=== PATIENT | male | born 1970 | race Two or more races ===

== ENCOUNTER 2020-10-17 13:36 | Outpatient (REF) | payer OTHER, SELFPAY | END 2020-10-17 13:37 | disposition home or self-care (01) | LOC: HO.LAB 13:36 | PROVIDERS: Visit Provider Internal Medicine | DX: Z20.828 Contact with and (suspected) exposure to other viral communicable diseases (principal) | CPT/HCPCS: C9803; U0003 ==

== ENCOUNTER → 2020-10-23 15:58 | Outpatient (BNVA) | payer OTHER, SELFPAY | PROVIDERS: PCP Internal Medicine; Visit Provider Nurse Practitioner | DX: Z76.89 Persons encountering health services in other specified circumstances (principal) ==

== ENCOUNTER 2020-12-24 08:22 | Day surgery (SDC) | payer OTHER, SELFPAY ==
--- NOTE | 2020-12-24 09:20 | P.CONAN_ITS ---
[facility] Active Problems Active Problems: All Active Problems (Updated 12/19/20 @ 11:33 by Lita ospina) COVID-19 (Acute) Hypertension (Acute) Past Medical History Medical History (Updated 12/19/20 @ 11:33 by Lita Henry) GERD (gastroesophageal reflux disease) Family History Family History (Updated 10/23/20 @ 16:02 by JOVAN Marte) Father Hypercholesteremia Diabetes Mother Thyroid condition Maternal Uncle Stomach ulcer Surgical History Surgical History (Updated 10/23/20 @ 16:00 by JOVAN Marte) No history of previous surgery Social History Social History (Updated 12/19/20 @ 11:33 by Lita Henry) Alcohol intake: current Alcohol intake frequency: holidays/special occasions only Smoking Status: Never smoker Use of substances other than those prescribed or required for medical reasons: Yes Substance Use Type: Marijuana Substance Use Frequency: Daily Advance Directives Information Provided: No Meds Allergies Allergy/AdvReac Type Severity Reaction Status Date / Time No Known Allergies Allergy Verified 10/23/20 15:59 Active Medications: Current Medications Generic Name Dose Route Start Last Admin Trade Name Lucianoq PRN Reason Stop Dose Admin Lactated Ringer's 500 mls @ 50 mls/hr 12/24/20 09:30 Lr IV 12/24/20 19:29 .Q10H [facility] Home Medications Medication Instructions Recorded Confirmed Last Taken Type omeprazole 40 mg capsule,delayed 40 mg PO DAILY 11/17/20 12/19/20 Unknown History release Exam Exam Date and Time: December 24, 2020 0920 Airway Mallampati Class: I TM Dist: >3cm Neck ROM: Full Heart: RRR Lungs: CTA BL Assessment and Plan Assessment Anesthesia Assessment: Anesthesia Plan Discussed and Chart Reviewed Final Anesthetic Review NPO: Yes ASA Class: II Final Preanesthetic Review: No Changes in Pt Med Stat and Consent Obtained/Reviewed Patient Risk: Intermediate Procedure Risk: Intermediate Anesthetic Plan Anesthetic Plan: MAC: Disposition: Standard PACU
[2020-12-24 09:29] VITALS: BP 151/93; PULSE 64; RESP 18; TEMP 36.8; O2SAT 99; BMI 25.8
[2020-12-24] MEDS: Lactated Ringers 500 ML 50 ML IV (09:39)
--- NOTE | 2020-12-24 10:18 | W.PM.OPN ---
Operative Note Operative Note Date of Service: 12/24/20 Narrative: Pre-op diagnosis: Colon cancer screening Post-op diagnosis: other (diverticulosis, hemorrhoids) Procedure: COLONOSCOPY TILL CECUM Consent: Indications for the procedure and potential complications of bleeding, perforation, reaction to medications and missed diagnosis were discussed with the patient and informed consent was obtained. Instrument: Olympus PCF H 190 L variable stiffness pediatric colonoscope Monitoring: Vital signs and clinical assessment, intermittent blood pressure monitoring, continuous EKG monitoring, Pulse oximetry and Carbon Dioxide monitoring were done throughout the procedure. Colon withdrawl time was 25 minutes. Procedure: The patient was placed in the left lateral decubitis position and pre-procedure medications were administered. After a digital rectal examination of the ano-rectum, the video colonoscope was inserted into the rectum and advanced through the colon to the cecum. The colonoscope was slowly withdrawn in a retrograde panoramic fashion and the colon mucosa was carefully examined including a retroflexed view of the rectum. Findings and interventions are described below. Procedure Difficulty: Without difficulty Findings: Terminal Ileum: Not evaluated Cecum: Normal Ascending Colon: Normal Transverse Colon: Normal Descending Colon: Moderate diverticulosis Sigmoid Colon: Severe diverticulosis Rectum: Normal Ano-rectum: Small internal hemorrhoids Colon preparation: Good after copious irrigation Impression and Post Procedure Diagnosis: Colonoscopy Findings: No polyps were detected. Moderate to severe diverticulosis seen in the left colon Small hemorrhoids on retroflexed exam. Plan: Await pathology results Patient has an appointment on 01/21/21 in the [facility] with Kimmy Gonzalez NP . Repeat Colonoscopy in 10 years. Above findings were reviewed with the patient and diverticulosis handout was given in the discharge area Surgeon: Rachel Soliz MD Anesthesia: MAC (Dr Villasenor) Estimated blood loss (mL): 0 Pathology: none sent Condition: stable Disposition: PACU
--- NOTE | 2020-12-24 10:18 | MHC.SHP ---
Pre-Procedural Eval Section A The patient is an INPATIENT: No The History & Physical has been completed within 30 days and I have reviewed it.: No Section B Chief Complaint: screening Details of Present Illness: Colon cancer screening, loose stools Relevant Family History (Specify if Yes): No Relevant Social History: Tobacco Use Present Medications: see Short Stay Collaborative assessment Medical History: Significant History (Overweight GERD Hypertension Allergic rhinitis Lumbar degenerative disc disease History of diverticulitis-2000 Bilateral carpal tunnel syndrome Smoker Erectile dysfunction Raynaud's syndrome Anxiety Marijuana smoker) History of Previous Operations: No relevant previous surgery Allergies: Allergies Allergy/AdvReac Type Severity Reaction Status Date / Time No Known Allergies Allergy Verified 10/23/20 15:59 Review of Systems Sugical H&P ROS: Negative: Constitution, Cardiovascular and Respiratory and Yes, Specify: Gastrointestinal (loose stools) Exam Surgical H&P Exam: Normal: Heart, Normal: Lungs, Normal: Extremities and Normal: Abdomen Plan Diagnosis/Plan: Unchanged I have reviewed the history and physical and performed a pertinent physical examination on my patient. No changes have occurred unless specified.
[2020-12-24 11:06] VITALS: BP 110/64; PULSE 64; RESP 16; TEMP 36.4; O2SAT 95
[2020-12-24 11:21] VITALS: BP 157/84; PULSE 55; RESP 16; TEMP 36.4; O2SAT 100
== END 2020-12-24 11:47 | disposition home or self-care (01) ==
PROVIDERS: PCP Internal Medicine; Visit Provider Internal Medicine Gastroenterology
PROC: 0DJD8ZZ Inspection of Lower Intestinal Tract, Via Natural or Artificial Opening Endoscopic (ICD-10-PCS; CPT 45378; principal; 2020-12-24 10:00)
DX: Z12.11 Encounter for screening for malignant neoplasm of colon (principal); K57.30 Diverticulosis of large intestine without perforation or abscess without bleeding; K64.8 Other hemorrhoids; K21.9 Gastro-esophageal reflux disease without esophagitis; I10 Essential (primary) hypertension; I73.00 Raynaud's syndrome without gangrene; J30.9 Allergic rhinitis, unspecified; E66.3 Overweight; Z79.899 Other long term (current) drug therapy; F12.90 Cannabis use, unspecified, uncomplicated; Z88.6 Allergy status to analgesic agent; Z86.16 Personal history of COVID-19
CPT/HCPCS: 45378

== ENCOUNTER → 2021-02-06 15:07 | Outpatient (BNVA) | payer OTHER, SELFPAY | PROVIDERS: PCP Internal Medicine; Visit Provider Nurse Practitioner ==

== ENCOUNTER 2023-07-20 16:00 | Outpatient (AMB) | payer OTHER, SELFPAY ==
--- NOTE | 2023-07-20 16:14 | A.OFFPC_ITS ---
Vital Signs 07/20/23 16:15 Height 5 ft 8 in Weight 188 lb 6 oz BMI 28.6 BP 138/80 Blood Pressure Location Lt brachial Position Sitting Pulse 93 Pulse Source Pulse Oximeter Pulse Oximetry (%) 97 Oxygen Delivery Method Room Air Intake Visit Reasons: PE Therapeutic Recreation Leader Required: No Accompanied by: Self / Same As Patient Allergies No Known Allergies Allergy (Verified 07/20/23 17:06) Medication List - Last Reconciled 07/20/23 by Justin Blackwood MD hydrocortisone 2.5% 1 appl topical BID PRN ibuprofen 800 mg PO Q8H PRN 30 days mupirocin 2% 1 appl topical TID 10 days omeprazole 40 mg PO DAILY 90 days Tobacco use date assessed: 07/20/23 Dental Screening Dental Screen Date: 07/20/23 Did you have a dental visit in the last 12 months?: Yes Did you have a dental problem in the last 6 months where you did not have access to dental care?: No Was dental information given to patient?: Patient has dentist HPI PE HPI Details Patient comes in today for his annual physical examination - was last seen here in 12/2020 States that he continues to experience increased pain over his lower back (chronic) Used to see Dr. Garcia at [facility] for his chronic low back pain but he has not been back to see him in over 5 years Adds that he's had a rash/lesion on his left upper back (below neck) for years States that the lesion tends to itch and occasionally bleed but the itching has gotten a lot worse lately He also has a large cyst over his right wrist area that has been present for years States that he tried to resolve this on his own by hitting his wrist with a heavy book years ago - states that the cyst did go away for a while but recalls that it is it hurt a lot when he hit his wrist with a book and that the cyst eventually recurred; thinks that it is also now slightly bigger than before He denies any headaches or dizziness Denies any chest pains, no shortness of breath No nausea/ vomiting, no abdominal pain No change in bowel habits noted States that he has been experiencing some urinary frequency and nocturia (at least 3 to 4 times a night) lately; denies any dysuria Had his screening colonoscopy done with Dr. Soliz a couple of years ago in December 2020 and was advised that his colonoscopy was normal and recommended him to get a repeat colonoscopy in 10 years [facility] Medical History (Updated 07/21/23 @ 05:39 by Justin Blackwood MD) Overweight (BMI 25.0-29.9) Vitamin D deficiency Allergic rhinitis Lumbar degenerative disc disease Folliculitis GERD without esophagitis Elevated PSA Impaired fasting blood sugar GERD (gastroesophageal reflux disease) Surgical History (Updated 07/21/23 @ 05:15 by Justin Blackwood MD) Hx of colonoscopy (~12/24/20) Family History Father Hypercholesteremia Diabetes Mother Thyroid condition Maternal Uncle Stomach ulcer Social History Housing: Apartment Alcohol intake: current Alcohol intake frequency: a few times a month Patient Tobacco Use Status: Former Tobacco user e-Cigarette/Vaping Use: Former Use Substance Use Type: Marijuana service: No Current occupational status: employed Cognitive needs: No Hearing needs: No Vision needs: No Questionnaire PHQ-9 Over the last 2 weeks, how often have you been bothered by any of the following problems? 1. Little interest or pleasure in doing things: not at all 2. Feeling down, depressed, or hopeless: not at all 3. Trouble falling or staying asleep, or sleeping too much: not at all 4. Feeling tired or having little energy: not at all 5. Poor appetite or overeating: not at all 6. Feeling bad about yourself - or that you are a failure or have let yourself or your family down: not at all 7. Trouble concentrating on things, such as reading the newspaper or watching television: not at all 8. Moving or speaking so slowly that other people could have noticed. Or the opposite - being so fidgety or restless that you have been moving around a lot more than usual: not at all 9. Thoughts that you would be better off or of hurting yourself in some way: not at all Total score: 0 Depression Screening Interpretation: Negative 33467 - PHQ-9 Billing: Yes Source: Developed by Drs. Leroy Goodman, Cira Cuevas, Hebert Wilburn and colleagues, with an educational doyle from [employer]. Thrive Questionnaire Date Thrive assessed: 07/20/23 I am a: Patient What is your living situation today?: I have a steady place to live Within the past 12 months, did the food you bought not last and you didn't have the money to get more?: Never true Within the past 12 months, did you worry whether your food would run out before you got money to buy more?: Never true Do you have trouble paying for medicines?: No Do you have trouble getting transportation to medical appointments?: No Do you have trouble paying your heating and electricity bill?: No Do you have trouble taking care of your child, family member or friend?: No Do you have trouble with day-to-day activities such as bathing, preparing meals, shopping, managing finances, etc.?: No Are you currently unemployed and looking for a job?: No Are you interested in more education?: No Please select the resources that you would like help with: None Currently or been in a relationship where the following occur: no concerns reported AUDIT C Alcohol Use Questionnaire (AUDIT-C) 1. How often do you have a drink containing alcohol?: Never Total Score: 0 Score Reviewed/Action Taken: Yes DAE-7 AMB Questionnaire ADE-7 Date DAE - 7 assessed: 07/20/23 Feeling nervous, anxious, or on edge: 0 = Not at all Not being able to stop or control worryin = Not at all Worrying too much about different things: 0 = Not at all Trouble relaxin = Not at all Being so restless that it is hard to sit still: 0 = Not at all Becoming easily annoyed or irritable: 0 = Not at all Feeling afraid as if something awful might happen: 0 = Not at all Total DAE-7 score (0-4 normal; 5-9 mild; 10-14 moderate; 15-21 severe): 0 Source: Developed by Drs. Leroy Goodman, Cira Cuevas, Hebert Wilburn and colleagues, with an educational doyle from [employer]. Review of Systems Const Denies chills, Denies fatigue, Denies fever(s), Denies headache(s), Denies malaise and Denies weakness Eyes Denies blurry vision, Denies change in vision, Denies irritation and Denies itchy eyes ENT Denies dysphagia, Denies dizziness, Denies otalgia, Denies headache(s), Denies nasal congestion, Denies neck pain, Denies odynophagia and Denies sore throat Card Denies chest pain, Denies rapid heart rate, Denies irregular heart rhythm, Denies palpitations and Denies dyspnea Resp Denies chest congestion, Denies cough, Denies dyspnea and Denies wheezing GI Denies abdominal pain, Denies bloating, Denies constipation, Denies dysphagia, Denies heartburn, Denies diarrhea, Denies nausea, Denies odynophagia and Denies vomiting Denies hematuria, Denies difficulty urinating, Denies dysuria, Reports nocturia, Reports urinary frequency and Denies urinary urgency Musc Reports back pain (over the lower back - chronic), Denies arthralgias, Denies joint swelling, Denies muscle weakness and Denies neck pain Skin/Breast Details: (+) large circular lesion on his left upper back and (+) large cyst on the right wrist Denies change in pigmentation, Denies rash and Denies unusual bruising Neuro Denies dizziness, Denies headache(s), Denies paresthesias and Denies weakness Endo Denies fatigue and Denies palpitations Aller/Immun Denies itchy eyes and Denies wheezing Physical exam (Primary Care) Vital Signs: Last Vital Signs Pulse 93 07/20/23 16:15 BP 138/80 07/20/23 16:15 Pulse Ox 97 07/20/23 16:15 Oxygen Delivery Method Room Air 07/20/23 16:15 BMI result Body Mass Index 28.6 Tobacco/Smoking Status: Tobacco use Status Tobacco use date assessed 07/20/23 07/20/23 16:27 Patient Tobacco Use Status Former Tobacco user 07/20/23 16:27 e-Cigarette/Vaping Use Former Use 07/20/23 16:27 PHQ-9: PHQ-9 Score PHQ-9: Total score 0 07/20/23 17:08 Depression Screening Interpretation: Negative Thrive Assessment: Date of Thrive Assessment Date Thrive assessed 07/20/23 07/20/23 16:27 Currently or been in a relationship where the following occur: no concerns reported Const General: no acute distress, alert and awake Orientation/consciousness: patient oriented x3 HENMT Head: Yes normocephalic and Yes atraumatic Ears: external ears normal, TM's normal bilaterally and EAC's normal General nose exam: No nasal discharge present Face and sinus: Yes normal facial exam and Yes sinuses nontender Teeth and gingiva: dentition normal Throat: Yes posterior oropharynx normal and Yes tonsils normal (no TP congestion) Eyes Eyelids: Yes eyelids normal Conjunctivae: conjunctivae normal Pupils: Equal, round and reactive pupils present EOM: EOMs intact bilaterally Neck Neck: Yes no lymphadenopathy and Yes supple Thyroid: Thyroid normal Resp Auscultation: clear to auscultation bilaterally, no rales and no wheezes Cardio Rate: regular rate Rhythm: regular rhythm Heart sounds: no murmurs GI Palpation (GI): Soft to palpation, nontender and No hepatosplenomegaly present Auscultation: normal bowel sounds General: Yes no CVA tenderness Back/Spine/Pelvis Back: no CVA tenderness Thoracic/Lumbar Spine: lumbar spinal tenderness (increased) Skin Other: (+) large circular lesion on his left upper back just below the neck - lesions has a raised border with some urticarial spots; also (+) large ganglion cyst on the volar aspect of the radial side of the right wrist Rashes: no rashes Neuro General: patient oriented x3, moves all extremities, no focal motor deficits and CN's II-XI intact bilaterally Cranial nerves: Yes Equal, round and reactive pupils present Cognition (Neuro): normal cognition Gait exam (Neuro): Normal gait present Extrem General: Yes no clubbing, cyanosis or edema Assessment and Plan Assessment & Plan (1) Annual physical exam: Code(s): Z00.00 - Encounter for general adult medical examination without abnormal findings Plan: Check labs He is up-to-date with his screening colonoscopy (2) Lumbar degenerative disc disease: Code(s): M51.36 - Other intervertebral disc degeneration, lumbar region Plan: Reinforced activity and weight lifting restrictions Continue Ibuprofen 800 mg TID PRN Will send patient for repeat lumbar spine x-rays for further evaluation Will also try referring [facility] with [facility] Garcia for pain management (3) Impaired fasting blood sugar: Code(s): R73.01 - Impaired fasting glucose Plan: Reinforced low calorie/low carb diet Will recheck his FBS for follow up; will also check his HgbA1c for further evaluation (4) GERD without esophagitis: Code(s): K21.9 - Gastro-esophageal reflux disease without esophagitis Plan: Dietary restrictions reinforced Continue Omeprazole 40 mg QD (5) Vitamin D deficiency: Code(s): E55.9 - Vitamin D deficiency, unspecified Plan: Will recheck his Vitamin D level for follow up (6) Allergic rhinitis: Code(s): J30.9 - Allergic rhinitis, unspecified Qualifiers: Allergic rhinitis trigger: unspecified Allergic rhinitis seasonality: unspecified Qualified Code(s): J30.9 - Allergic rhinitis, unspecified Plan: Continue OTC Loratadine 10 mg QD PRN (7) Pruritic rash: Code(s): L28.2 - Other prurigo Plan: Will refer him to dermatology for further evaluation and management of the increasingly pruritic lesion on his left upper back (8) Ganglion cyst of volar aspect of right wrist: Code(s): M67.431 - Ganglion, right wrist Plan: Will refer him to orthopedics for consideration for excision of his right wrist ganglion cyst (9) Urinary frequency: Code(s): R35.0 - Frequency of micturition Plan: Possibly due to BPH Will check PSA level - if elevated, will refer to urology for further evaluation and management Will also consider starting on alpha blockers for symptomatic relief if urinary frequency persists or gets worse (10) Overweight (BMI 25.0-29.9): Code(s): E66.3 - Overweight Plan: Reinforced diet/exercise as tolerated /lose weight Plan Follow up in 3 months Orders: Orders XR lumbar spine 2-3V 07/20/23 M54.50 - Low back pain, unspecified Comprehensive Rickman. Panel Fast 07/20/23 R97.20 - Elevated prostate specific antigen [PSA], Z00.00 - Encounter for general adult medical examination without abnormal findings TSH reflex Free T4 07/20/23 E78.00 - Pure hypercholesterolemia, unspecified, Z00.00 - Encounter for general adult medical examination without abnormal findings UA CC w/rflx Micro + Cult 07/20/23 R30.0 - Dysuria, Z00.00 - Encounter for general adult medical examination without abnormal findings Vitamin D 25-OH Total 07/20/23 E55.9 - Vitamin D deficiency, unspecified, Z00.00 - Encounter for general adult medical examination without abnormal findings Prostate Specific Antigen 07/20/23 N40.0 - Benign prostatic hyperplasia without lower urinary tract symptoms Complete Blood Count Auto Diff 07/20/23 R97.20 - Elevated prostate specific antigen [PSA], Z00.00 - Encounter for general adult medical examination without abnormal findings Lipid Panel 07/20/23 E78.00 - Pure hypercholesterolemia, unspecified, R97.20 - Elevated prostate specific antigen [PSA], Z00.00 - Encounter for general adult medical examination without abnormal findings Hemoglobin A1c 07/20/23 R73.01 - Impaired fasting glucose Referrals Dermatology Referral L28.2 - Other prurigo Pain Management Referral M51.36 - Other intervertebral disc degeneration, lumbar region Orthopedics Referral M67.431 - Ganglion, right wrist Coding Level of Care Code Est Pt Prev Care 40-64y(93398) Diagnoses Annual physical exam Z00.00 Lumbar degenerative disc disease M51.36 Impaired fasting blood sugar R73.01 GERD without esophagitis K21.9 Vitamin D deficiency E55.9 Allergic rhinitis, unspecified seasonality, unspecified trigger J30.9 Allergic rhinitis trigger: unspecified Allergic rhinitis seasonality: unspecified Pruritic rash L28.2 Ganglion cyst of volar aspect of right wrist M67.431 Urinary frequency R35.0 Overweight (BMI 25.0-29.9) E66.3
[2023-07-20 16:15] VITALS: BP 138/80; PULSE 93; O2SAT 97; BMI 28.6
== END 2023-07-20 17:19 | disposition home or self-care (01) ==
PROVIDERS: PCP Internal Medicine; Visit Provider Internal Medicine
DX: Z00.00 Encounter for general adult medical examination without abnormal findings (principal); M51.36 Other intervertebral disc degeneration, lumbar region; K21.9 Gastro-esophageal reflux disease without esophagitis; E55.9 Vitamin D deficiency, unspecified; R73.01 Impaired fasting glucose; J30.9 Allergic rhinitis, unspecified; L28.2 Other prurigo; M67.431 Ganglion, right wrist; R35.0 Frequency of micturition; E66.3 Overweight
CPT/HCPCS: 99396

== ENCOUNTER 2023-07-22 08:53 | Outpatient (REF) | payer OTHER, SELFPAY ==
[2023-07-22 09:05] LABS: MANUAL DIFF FLAG NO
[2023-07-22 10:12] LABS: Basophils Absolute Auto 0.1 X10*3/uL (0.0-0.2); Basophils Percent Auto 0.6 % (0-2); Eosinophils Absolute Auto 0.3 X10*3/uL (0.0-0.4); Eosinophils Percent Auto 3.5 % (0-4); Hematocrit 44.3 % (42.0-52.0); Hemoglobin 16.1 g/dl (14.0-18.0); Imm Gran Abs Auto 0.03 X10*3/uL (0.00-0.03); Imm Gran Pct Auto 0.4 % (0.0-0.4); Lymphocytes Absolute Auto 3.1 X10*3/uL (1.2-4.9); Lymphocytes Percent Auto 37.5 % (20-40); Mean Corpuscular HGB Conc 36.3 g/dl (31.0-36.0); Mean Corpuscular Hemoglobin 31.6 pg (27.0-33.0); Mean Platelet Volume 10.4 fL (9.4-12.4); Monocytes Absolute Auto 0.9 X10*3/uL (0.1-1.2); Monocytes Percent Auto 10.4 % (2-11); Neutrophils Percent Auto 47.6 % (45-73); Platelet Count 204 X10*3/uL (160-400); Red Blood Count 5.09 X10*6/uL (4.60-5.80); Red Cell Distribution Width 13.2 % (11.0-16.0); White Blood Count 8.4 X10*3/uL (4.8-10.8)
[2023-07-22 10:13] LABS: Appearance Urine Clear; Color Urine Yellow; Glucose Urine UA Negative (Negative); Leukocyte Esterase Urine Negative (Negative); Nitrite Urine Negative (Negative); PH 5.5 (5.0-9.0); Urine Blood Negative (Negative); Urine Ketones Negative (Negative); Urine Protein Negative (Neg-Trace)
[2023-07-22 10:30] LABS: Estimated Average Glucose 88 mg/dL; Hemoglobin A1c % 4.7 % (<6.0)
[2023-07-22 11:11] LABS: Alanine Aminotransferase 32 U/L (0-40); Albumin Level 4.2 g/dL (3.5-5.0); Alkaline Phosphatase 120 U/L (39-117); Anion Gap 12 (12-20); Aspartate Amino Transferase 30 U/L (5-37); Bilirubin Total 0.4 mg/dL (0.0-1.0); Blood Urea Nitrogen 13 mg/dL (9-16); Calcium 9.2 mg/dL (8.4-10.2); Carbon Dioxide 24 mmol/L (22-29); Chloride 108 mmol/L (96-108); Cholesterol 153 mg/dL (<200); Estimated Glomerular Filt Rate > 60; Glucose Fasting 103 mg/dL (60-99); HDL Cholesterol 37 mg/dL (>40); LDL Cholesterol Calculated 80 mg/dL (<100); Potassium 3.8 mmol/L (3.3-5.1); Sodium 140 mmol/L (135-145); Total Protein 7.3 g/dL (6.5-8.0); Triglycerides 184 mg/dL (<150)
[2023-07-22 11:25] LABS: Prostate Specific Antigen 4.34 ng/mL (<0.05-4.0)
[2023-07-22 11:34] LABS: TSH reflex Free T4 0.28 uIU/mL (0.32-4.0); Vitamin D 25-OH Total 21.5 ng/mL (>30)
[2023-07-22 12:08] LABS: Free T4 (Free Thyroxine) 0.97 ng/dL (0.71-1.85)
== END 2023-07-22 08:54 | disposition home or self-care (01) ==
LOC: HO.LAB 08:53
PROVIDERS: PCP Internal Medicine; Visit Provider Internal Medicine
DX: Z00.00 Encounter for general adult medical examination without abnormal findings (principal); Z12.5 Encounter for screening for malignant neoplasm of prostate; E55.9 Vitamin D deficiency, unspecified; N40.0 Benign prostatic hyperplasia without lower urinary tract symptoms; E78.00 Pure hypercholesterolemia, unspecified; R97.20 Elevated prostate specific antigen [PSA]; R73.01 Impaired fasting glucose; R30.0 Dysuria
CPT/HCPCS: 36415; 80053; 80061; 81003; 82306; 83036; 84153; 84439; 84443; 85025

== ENCOUNTER 2023-08-17 09:49 | Outpatient (AMB) | payer OTHER, SELFPAY ==
--- NOTE | 2023-08-17 09:58 | A.OFFVIS_ITS ---
Intake Vital Signs 08/17/23 10:01 Height 5 ft 8 in Weight 188 lb BMI 28.6 Handedness Ambidextrous Intake Visit Reasons: New Pt - right wrist pain Intake Note: Star is a 52 year old left hand dominant who presents today as a new patient for a evaluation for his right wrist lump. Patient reports he noticed that it grew a little bit bigger about 2 years ago. He states when he over works his wrist he feels that it gets swollen. Allergies No Known Allergies Allergy (Verified 08/17/23 10:00) HPI New Pt - right wrist pain HPI Details 52-year-old left hand dominant male who presents in the office today, as a new patient, for an evaluation of right wrist lump. The patient reported he noticed the lump on the right wrist was growing about 2 years ago. He states when he over works the wrist he has edema. [facility] Medical History (Updated 07/21/23 @ 05:39 by Justin Blackwood MD) Overweight (BMI 25.0-29.9) Vitamin D deficiency Allergic rhinitis Lumbar degenerative disc disease Folliculitis GERD without esophagitis Elevated PSA Impaired fasting blood sugar GERD (gastroesophageal reflux disease) Surgical History (Updated 07/21/23 @ 05:15 by Justin Blackwood MD) Hx of colonoscopy (~12/24/20) Family History Father Hypercholesteremia Diabetes Mother Thyroid condition Maternal Uncle Stomach ulcer Social History Housing: Apartment Alcohol intake: current Alcohol intake frequency: a few times a month Patient Tobacco Use Status: Former Tobacco user e-Cigarette/Vaping Use: Former Use Substance Use Type: Marijuana service: No Current occupational status: employed Cognitive needs: No Hearing needs: No Vision needs: No Review of Systems Const All systems reviewed & are unremarkable except as noted in HPI and below Physical Exam Vital Signs: BMI result Body Mass Index 28.6 Const General: cooperative and no acute distress Orientation/consciousness: patient oriented x3 Resp Effort & Inspection: normal respiratory effort and able to speak in complete sentences Cardio Peripheral pulses: Peripheral pulses 2+ throughout Skin General skin exam: no rashes or lesions noted Neuro General: patient oriented x3 Extrem Other: Right wrist: Normal to inspection. No ecchymosis, erythema, or edema. Large ganglion cyst over the volar aspect of the right wrist. Able to perform full finger flexion, extension, abduction, adduction, finger cross, okay sign, and thumbs up without deficit. Able to make a closed fist. Sensation intact. Capillary refill is brisk. Radial pulse intact. Assessment & Plan Assessment & Plan (1) Ganglion cyst of volar aspect of right wrist: Code(s): M67.431 - Ganglion, right wrist Plan Mr. Navarro is a 52-year-old left hand dominant male who presents in the office today, as a new patient, for an evaluation of right wrist lump. The patient reported he noticed the lump on the right wrist was growing about 2 years ago. He states when he over works the wrist he has edema. The patient would like to move forward with a right wrist ganglion cyst excision. He prefer to have surgery after Reddy. Follow up will be at his preoperative appointment, or sooner if needed. Orders: Orders XR wrist RT min 3V Today M25.539 - Pain in unspecified wrist Patient Instructions: Scribed for Fern Burnett PA-C by Consuelo Najera certified medical technician, on 08/17/2023 at 9:5 am, EST. Coding Level of Care Code New Pt Level 4 (73266) Diagnoses Ganglion cyst of volar aspect of right wrist M67.431
[2023-08-17 10:01] VITALS: BMI 28.6
== END 2023-08-17 11:24 | disposition home or self-care (01) ==
PROVIDERS: PCP Internal Medicine; Visit Provider Physician Assistant
DX: M67.431 Ganglion, right wrist (principal)
CPT/HCPCS: 99204

== ENCOUNTER 2023-08-17 11:08 | Outpatient (REF) | payer OTHER, SELFPAY ==
--- NOTE | ~2023-08-17 | XR_ITS ---
EXAMINATION: XR WRIST, RIGHT CLINICAL INFORMATION: Pain in the right wrist medially COMPARISON: 11/24/2017 TECHNIQUE: PA, lateral, and oblique views of the right wrist. FINDINGS: The bones and soft tissues are normal. No fracture. Alignment is anatomic with normal joint spaces. No erosions. There is small soft tissue subcutaneous lump corresponding to the area of pain medially. XR/XR wrist RT min 3V IMPRESSION: Small soft tissue lump in the area of pain medially, correlate clinically
== END 2023-08-17 11:09 | disposition home or self-care (01) ==
LOC: HO.HOSX 11:08
PROVIDERS: Visit Provider Physician Assistant
DX: M67.431 Ganglion, right wrist (principal)
CPT/HCPCS: 73110

== ENCOUNTER 2023-08-24 14:44 | Outpatient (AMB) | payer OTHER, SELFPAY ==
[2023-08-24 14:45] VITALS: BP 132/86; PULSE 92; O2SAT 97; BMI 28.6
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
== END 2023-08-24 15:31 | disposition home or self-care (01) ==
PROVIDERS: PCP Internal Medicine; Visit Provider Internal Medicine
DX: Z23 Encounter for immunization (principal); Z04.3 Encounter for examination and observation following other accident
CPT/HCPCS: 90471; 90686; 99214

== ENCOUNTER 2023-10-18 16:06 | Outpatient (AMB) | payer OTHER, SELFPAY ==
[2023-10-18 16:14] VITALS: BP 130/78; PULSE 71; O2SAT 98; BMI 29.0
--- NOTE | 2023-10-18 16:14 | MHC.PC.OV ---
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 Accompanied by: Self / Same As Patient Allergies No Known Allergies Allergy (Verified 10/18/23 17:00) Medication List - Last Reconciled 10/18/23 by Justin Blackwood MD hydrocortisone 2.5% 1 appl topical BID PRN ibuprofen 800 mg PO Q8H PRN 30 days mupirocin 2% 1 appl topical TID 10 days omeprazole 40 mg PO DAILY 90 days pregabalin 50 mg PO TID Tobacco use date assessed: 10/18/23 Dental Screening Dental Screen Date: 10/18/23 Did you have a dental visit in the last 12 months?: Yes Did you have a dental problem in the last 6 months where you did not have access to dental care?: No Was dental information given to patient?: Patient has dentist HPI 3 month f/u HPI Details Patient comes in today for his follow up visit States that he is still feeling very anxious ( freaked out ) about his elevated PSA level ever since we informed him about his lab test results at his last visit a couple of months ago Relates that he cannot help thinking that he is dying of cancer Was referred to urology for further evaluation and management but states that he has not yet heard back from urology so no appointment has been scheduled yet Is wondering what else he can do to help him get his PSA back down to normal He presently denies any acute urinary symptoms other than his urinary frequency and nocturia He denies any headaches or dizziness Denies any chest pains, no SOB No nausea/vomiting, no abdominal pain No change in bowel habits noted PFSH Medical History Overweight (BMI 25.0-29.9) Vitamin D deficiency Allergic rhinitis Lumbar degenerative disc disease Folliculitis GERD without esophagitis Elevated PSA Impaired fasting blood sugar GERD (gastroesophageal reflux disease) Surgical History Hx of colonoscopy (~12/24/20) Family History Father Hypercholesteremia Diabetes Mother Thyroid condition Maternal Uncle Stomach ulcer Social History Housing: Apartment Alcohol intake: current Alcohol intake frequency: a few times a month Patient Tobacco Use Status: Former Tobacco user e-Cigarette/Vaping Use: Former Use Substance Use Type: Marijuana service: No Current occupational status: employed Cognitive needs: No Hearing needs: No Vision needs: No Questionnaire PHQ-9 Over the last 2 weeks, how often have you been bothered by any of the following problems? 1. Little interest or pleasure in doing things: not at all 2. Feeling down, depressed, or hopeless: not at all 3. Trouble falling or staying asleep, or sleeping too much: not at all 4. Feeling tired or having little energy: not at all 5. Poor appetite or overeating: not at all 6. Feeling bad about yourself - or that you are a failure or have let yourself or your family down: not at all 7. Trouble concentrating on things, such as reading the newspaper or watching television: not at all 8. Moving or speaking so slowly that other people could have noticed. Or the opposite - being so fidgety or restless that you have been moving around a lot more than usual: not at all 9. Thoughts that you would be better off or of hurting yourself in some way: not at all Total score: 0 Depression Screening Interpretation: Negative Depression Screening Done: Yes 12589 - PHQ-9 Billing: Yes Source: Developed by Drs. Leroy Goodman, Cira Cuevas, Hebert Wilburn and colleagues, with an educational doyle from [employer]. Thrive Questionnaire Date Thrive assessed: 10/18/23 I am a: Patient What is your living situation today?: I have a steady place to live Within the past 12 months, did the food you bought not last and you didn't have the money to get more?: Never true Within the past 12 months, did you worry whether your food would run out before you got money to buy more?: Never true Do you have trouble paying for medicines?: No Do you have trouble getting transportation to medical appointments?: No Do you have trouble paying your heating and electricity bill?: No Do you have trouble taking care of your child, family member or friend?: No Do you have trouble with day-to-day activities such as bathing, preparing meals, shopping, managing finances, etc.?: No Are you currently unemployed and looking for a job?: No Are you interested in more education?: No Please select the resources that you would like help with: None Currently or been in a relationship where the following occur: no concerns reported AUDIT C Alcohol Use Questionnaire (AUDIT-C) 1. How often do you have a drink containing alcohol?: Never Total Score: 0 Score Reviewed/Action Taken: Yes DAE-7 AMB Questionnaire DAE-7 Date DAE - 7 assessed: 10/18/23 Feeling nervous, anxious, or on edge: 0 = Not at all Not being able to stop or control worryin = Not at all Worrying too much about different things: 0 = Not at all Trouble relaxin = Not at all Being so restless that it is hard to sit still: 0 = Not at all Becoming easily annoyed or irritable: 0 = Not at all Feeling afraid as if something awful might happen: 0 = Not at all Total DAE-7 score (0-4 normal; 5-9 mild; 10-14 moderate; 15-21 severe): 0 Source: Developed by Drs. Leroy Goodman, Cira Cuevas, Hebert Wilburn and colleagues, with an educational doyle from [employer]. Review of Systems Const Denies fatigue, Denies fever(s) and Denies headache(s) ENT Denies dysphagia, Denies dizziness, Denies headache(s), Denies neck pain, Denies odynophagia and Denies sore throat Card Denies chest pain, Denies rapid heart rate, Denies irregular heart rhythm, Denies palpitations and Denies dyspnea Resp Denies cough, Denies dyspnea and Denies wheezing GI Denies abdominal pain, Denies constipation, Denies dysphagia, Denies heartburn, Denies diarrhea, Denies nausea, Denies odynophagia and Denies vomiting Denies hematuria, Denies difficulty urinating, Denies dysuria, Reports nocturia and Reports urinary frequency Musc Reports back pain (over the lower back - chronic but increased at present), Denies arthralgias and Denies neck pain Skin/Breast Denies rash Neuro Denies dizziness, Denies headache(s) and Denies paresthesias Endo Denies fatigue and Denies palpitations Aller/Immun Denies wheezing Physical exam (Primary Care) Vital Signs: Last Vital Signs Pulse 71 10/18/23 16:14 BP 130/78 10/18/23 16:14 Pulse Ox 98 10/18/23 16:14 Oxygen Delivery Method Room Air 10/18/23 16:14 BMI result Body Mass Index 29.0 Tobacco/Smoking Status: Tobacco use Status Tobacco use date assessed 10/18/23 10/18/23 16:16 Patient Tobacco Use Status Former Tobacco user 10/18/23 16:16 e-Cigarette/Vaping Use Former Use 10/18/23 16:16 PHQ-9: PHQ-9 Score PHQ-9: Total score 0 10/18/23 17:02 Depression Screening Interpretation: Negative Thrive Assessment: Date of Thrive Assessment Date Thrive assessed 10/18/23 10/18/23 16:16 Currently or been in a relationship where the following occur: no concerns reported Assessment and Plan Assessment & Plan (1) Elevated PSA: Code(s): R97.20 - Elevated prostate specific antigen [PSA] Plan: He is advised/reassured again that his PSA level was elevated at 4.34 on his labs done a couple of months ago BUT statistically, the most common reason for this by far is still BENIGN prostate enlargement and not prostate cancer although this still needs to be ruled out He was referred to urology for further evaluation and management a couple of months ago but he still has not been contacted nor scheduled for an appointment yet - will have the referral staff look into this to see if this can be expedited to help allay patient's concern and anxiety (2) Lumbar degenerative disc disease: Code(s): M51.36 - Other intervertebral disc degeneration, lumbar region Plan: Reinforced activity and weight lifting restrictions Continue Ibuprofen 800 mg TID PRN and Pregabalin 50 mg TID Repeat lumbar spine x-rays done a couple of months ago revealed (+) mild degenerative endplate changes at the lumbosacral junction (L5-S1) He was also referred back to [facility] with Dr. Gacria for pain management a few months ago (3) Impaired fasting blood sugar: Code(s): R73.01 - Impaired fasting glucose Plan: His FBS was at 103 mg/dl a few months ago but his HgbA1c was normal at 4.7% Reinforced low calorie/low carb diet (4) GERD without esophagitis: Code(s): K21.9 - Gastro-esophageal reflux disease without esophagitis Plan: Dietary restrictions reinforced Continue Omeprazole 40 mg QD (5) Vitamin D deficiency: Code(s): E55.9 - Vitamin D deficiency, unspecified Plan: He is advised that his Vitamin D level was low on his recent labs and that he should start back on OTC Vitamin D3 2000 units QD Will try sending in Rx in case insurance will cover but reminded that he can get this OTC without a prescription (6) Allergic rhinitis: Code(s): J30.9 - Allergic rhinitis, unspecified Qualifiers: Allergic rhinitis trigger: unspecified Allergic rhinitis seasonality: unspecified Qualified Code(s): J30.9 - Allergic rhinitis, unspecified Plan: Continue OTC Loratadine 10 mg QD PRN (7) Pruritic rash: Code(s): L28.2 - Other prurigo Plan: He was previously referred to dermatology for further evaluation and management of the increasingly pruritic lesion on his left upper back and states that he has an appointment with dermatology coming up in November 2023 (8) Ganglion cyst of volar aspect of right wrist: Code(s): M67.431 - Ganglion, right wrist Plan: He was previously referred to orthopedics for consideration for excision of his right wrist ganglion cyst - to follow up with orthopedics as scheduled (9) Overweight (BMI 25.0-29.9): Code(s): E66.3 - Overweight Plan: Reinforced diet/exercise as tolerated /lose weight Plan Follow up in 4 months Medications: New cholecalciferol (vitamin D3) 50 mcg PO DAILY 90 caps 3RF 90 days E55.9 - Vitamin D deficiency, unspecified Coding Level of Care Code Est Pt Level 4 (06775) Diagnoses Elevated PSA R97.20 Lumbar degenerative disc disease M51.36 Impaired fasting blood sugar R73.01 GERD without esophagitis K21.9 Vitamin D deficiency E55.9 Allergic rhinitis, unspecified seasonality, unspecified trigger J30.9 Allergic rhinitis trigger: unspecified Allergic rhinitis seasonality: unspecified Pruritic rash L28.2 Ganglion cyst of volar aspect of right wrist M67.431 Overweight (BMI 25.0-29.9) E66.3
== END 2023-10-18 17:08 | disposition home or self-care (01) ==
PROVIDERS: PCP Internal Medicine; Visit Provider Internal Medicine
DX: R97.20 Elevated prostate specific antigen [PSA] (principal); M51.36 Other intervertebral disc degeneration, lumbar region; R73.01 Impaired fasting glucose; K21.9 Gastro-esophageal reflux disease without esophagitis; E55.9 Vitamin D deficiency, unspecified; J30.9 Allergic rhinitis, unspecified; L28.2 Other prurigo; M67.431 Ganglion, right wrist; E66.3 Overweight
CPT/HCPCS: 99214

== ENCOUNTER 2024-07-21 12:41 | Outpatient (AMB) | payer OTHER, SELFPAY ==
[2024-07-21 12:42] VITALS: BP 136/88; PULSE 109; O2SAT 98; BMI 28.1
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
== END 2024-07-21 13:36 | disposition home or self-care (01) ==
LOC: HO.HMCH 12:41
PROVIDERS: PCP Internal Medicine; Visit Provider Internal Medicine
DX: Z00.00 Encounter for general adult medical examination without abnormal findings (principal); M54.2 Cervicalgia; R97.20 Elevated prostate specific antigen [PSA]; M51.36 Other intervertebral disc degeneration, lumbar region; R73.01 Impaired fasting glucose; K21.9 Gastro-esophageal reflux disease without esophagitis; E55.9 Vitamin D deficiency, unspecified; J30.9 Allergic rhinitis, unspecified; L28.2 Other prurigo; E66.3 Overweight

== ENCOUNTER → 2024-07-21 12:41 | Outpatient (BNVA) | payer OTHER, SELFPAY | PROVIDERS: PCP Internal Medicine; Visit Provider Internal Medicine | DX: Z00.01 Encounter for general adult medical examination with abnormal findings (principal); M54.2 Cervicalgia; R97.20 Elevated prostate specific antigen [PSA]; M51.36 Other intervertebral disc degeneration, lumbar region; R73.01 Impaired fasting glucose; K21.9 Gastro-esophageal reflux disease without esophagitis; J30.9 Allergic rhinitis, unspecified; L28.2 Other prurigo; E66.3 Overweight; Z68.28 Body mass index [BMI] 28.0-28.9, adult; Z79.899 Other long term (current) drug therapy | CPT/HCPCS: 96127 ==

== ENCOUNTER 2024-08-14 07:52 | Outpatient (REF) | payer OTHER, SELFPAY ==
[2024-08-14 08:16] LABS: MANUAL DIFF FLAG NO
[2024-08-14 08:54] LABS: Basophils Absolute Auto 0.1 X10*3/uL (0.0-0.2); Basophils Percent Auto 0.8 % (0-2); Eosinophils Absolute Auto 0.3 X10*3/uL (0.0-0.4); Eosinophils Percent Auto 3.6 % (0-4); Hematocrit 47.7 % (42.0-52.0); Hemoglobin 17.1 g/dl (14.0-18.0); Imm Gran Abs Auto 0.05 X10*3/uL (0.00-0.03); Imm Gran Pct Auto 0.7 % (0.0-0.4); Lymphocytes Absolute Auto 2.6 X10*3/uL (1.2-4.9); Lymphocytes Percent Auto 34.5 % (20-40); Mean Corpuscular HGB Conc 35.8 g/dl (31.0-36.0); Mean Corpuscular Hemoglobin 31.6 pg (27.0-33.0); Mean Corpuscular Volume 88.2 fL (80.0-98.0); Mean Platelet Volume 9.8 fL (9.4-12.4); Monocytes Absolute Auto 0.6 X10*3/uL (0.1-1.2); Monocytes Percent Auto 8.1 % (2-11); Neutrophils Percent Auto 52.3 % (45-73); Platelet Count 232 X10*3/uL (160-400); Red Blood Count 5.41 X10*6/uL (4.60-5.80); Red Cell Distribution Width 13.3 % (11.0-16.0); White Blood Count 7.6 X10*3/uL (4.8-10.8)
[2024-08-14 08:56] LABS: Appearance Urine Clear; Color Urine Yellow; Glucose Urine UA Negative (Negative); Leukocyte Esterase Urine Negative (Negative); Nitrite Urine Negative (Negative); PH 5.5 (5.0-9.0); Urine Blood Negative (Negative); Urine Ketones Negative (Negative); Urine Protein Negative (Neg-Trace)
[2024-08-14 09:07] LABS: Estimated Average Glucose 91 mg/dL; Hemoglobin A1C 115.7337 umol/L; Hemoglobin A1c % 4.8 % (<6.0); Total Hemoglobin (HGBA1C) 3962.5698 umol/L
[2024-08-14 09:32] LABS: Alanine Aminotransferase 34 U/L (0-40); Albumin Level 4.6 g/dL (3.5-5.0); Alkaline Phosphatase 121 U/L (39-117); Anion Gap 11 (12-20); Aspartate Amino Transferase 27 U/L (5-37); Bilirubin Total 0.9 mg/dL (0.0-1.0); Blood Urea Nitrogen 14 mg/dL (9-16); Calcium 9.6 mg/dL (8.4-10.2); Carbon Dioxide 27 mmol/L (22-29); Chloride 107 mmol/L (96-108); Cholesterol 158 mg/dL (<200); Estimated Glomerular Filt Rate > 60; Glucose Fasting 109 mg/dL (60-99); HDL Cholesterol 42 mg/dL (>40); LDL Cholesterol Calculated 99 mg/dL (<100); Potassium 4.3 mmol/L (3.3-5.1); Sodium 141 mmol/L (135-145); Total Protein 7.5 g/dL (6.5-8.0); Triglycerides 88 mg/dL (<150)
[2024-08-14 09:44] LABS: Prostate Specific Antigen 5.92 ng/mL (<0.05-4.0)
[2024-08-14 09:48] LABS: TSH reflex Free T4 0.31 uIU/mL (0.32-4.0); Vitamin D 25-OH Total 39.4 ng/mL (>30)
[2024-08-14 10:50] LABS: Free T4 (Free Thyroxine) 1.09 ng/dL (0.71-1.85)
== END 2024-08-14 07:53 | disposition home or self-care (01) ==
LOC: HO.LAB 07:52
PROVIDERS: PCP Internal Medicine; Visit Provider Internal Medicine
DX: Z00.00 Encounter for general adult medical examination without abnormal findings (principal); E55.9 Vitamin D deficiency, unspecified; E78.00 Pure hypercholesterolemia, unspecified; R30.0 Dysuria; N40.0 Benign prostatic hyperplasia without lower urinary tract symptoms; E11.9 Type 2 diabetes mellitus without complications; D64.9 Anemia, unspecified; Z12.5 Encounter for screening for malignant neoplasm of prostate
CPT/HCPCS: 36415; 80053; 80061; 81003; 82306; 83036; 84153; 84439; 84443; 85025

== ENCOUNTER 2025-01-19 16:17 | Outpatient (AMB) | payer OTHER, SELFPAY ==
--- NOTE | 2025-01-19 16:20 | MHC.PC.OV ---
Vital Signs 01/19/25 16:24 Height 5 ft 8 in Weight 190 lb 4 oz BMI 28.9 BP 124/78 Blood Pressure Location Lt brachial Position Sitting Pulse 76 Pulse Source Pulse Oximeter Temp 97.7 F Temp Source Temporal Artery Scan Pulse Oximetry (%) 98 Oxygen Delivery Method Room Air Intake Visit Reasons: 6mth f/u Intake Note: Patient is here to follow up on LDDD, HTN. 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 Accompanied by: Self / Same As Patient Allergies No Known Allergies Allergy (Verified 01/21/25 18:35) Medication List - Last Reconciled 01/21/25 by Justin Blackwood MD cholecalciferol (vitamin D3) 50 mcg PO DAILY 90 days clobetasol 0.05% 1 appl topical BID 2 weeks hydrocortisone 2.5% 1 appl topical BID PRN ibuprofen 800 mg PO Q8H PRN 30 days mupirocin 2% 1 appl topical TID 10 days omeprazole 40 mg PO DAILY 90 days pregabalin 50 mg PO TID Tobacco use date assessed: 01/19/25 Dental Screening Dental Screen Date: 01/19/25 Did you have a dental visit in the last 12 months?: Yes Did you have a dental problem in the last 6 months where you did not have access to dental care?: No Was dental information given to patient?: Patient has dentist HPI 6m f/ HPI Details Patient comes in today for his follow up visit States that he has been experiencing increased pain over the back of his neck for a while now and lately, has been hearing/feeling some grinding sounds in his neck every time he turns his head Would like to see if he can get his neck checked out again for his increasing neck pains States that he recently adjusted his insurance coverage and is now paying an additional $150 a month so he can have better coverage and is hoping that whatever work ups he now needs will be approved by his insurance Adds that he also has a recurrent open sore on his upper back (thinks that it is actually non-healing) that he's had for a while now and he would like to see a specialist for this He also has a raised keratotic lesion on his forehead that he would like to have checked out as well He would also like to know how he did on his labs done back in August 2024 He denies any headaches or dizziness Denies any chest pains, no SOB No nausea/vomiting, no abdominal pain No change in bowel habits noted Needs a couple of his Rx refilled PFSH Medical History Overweight (BMI 25.0-29.9) Vitamin D deficiency Allergic rhinitis Lumbar degenerative disc disease Folliculitis GERD without esophagitis Elevated PSA Impaired fasting blood sugar GERD (gastroesophageal reflux disease) Surgical History Hx of colonoscopy (~12/24/20) Family History (Updated 01/19/25 @ 16:21 by JOVAN Jurado) Father Hypercholesteremia Diabetes Mother Thyroid condition Maternal Uncle Stomach ulcer Social History Housing: Apartment Alcohol intake: current Alcohol intake frequency: a few times a month Patient Tobacco Use Status: Former Tobacco user e-Cigarette/Vaping Use: Former Use Second Hand Smoke Exposure: Yes Substance Use Type: Marijuana service: No Current occupational status: employed Cognitive needs: No Hearing needs: No Vision needs: No Questionnaire PHQ-9 Over the last 2 weeks, how often have you been bothered by any of the following problems? 1. Little interest or pleasure in doing things: not at all 2. Feeling down, depressed, or hopeless: not at all 3. Trouble falling or staying asleep, or sleeping too much: not at all 4. Feeling tired or having little energy: not at all 5. Poor appetite or overeating: not at all 6. Feeling bad about yourself - or that you are a failure or have let yourself or your family down: not at all 7. Trouble concentrating on things, such as reading the newspaper or watching television: not at all 8. Moving or speaking so slowly that other people could have noticed. Or the opposite - being so fidgety or restless that you have been moving around a lot more than usual: not at all 9. Thoughts that you would be better off or of hurting yourself in some way: not at all Total score: 0 Depression Screening Interpretation: Negative Depression Screening Done: Yes 24307 - PHQ-9 Billing: Yes Source: Developed by Drs. Leroy Goodman, Hebert Arechiga and colleagues, with an educational doyle from [employer]. Thrive Questionnaire Date Thrive assessed: 01/19/25 I am a: Patient What is your living situation today?: I have a steady place to live Within the past 12 months, did the food you bought not last and you didn't have the money to get more?: Never true Within the past 12 months, did you worry whether your food would run out before you got money to buy more?: Never true Do you have trouble paying for medicines?: No Do you have trouble getting transportation to medical appointments?: No Do you have trouble paying your heating and electricity bill?: No Do you have trouble taking care of your child, family member or friend?: No Do you have trouble with day-to-day activities such as bathing, preparing meals, shopping, managing finances, etc.?: No Are you currently unemployed and looking for a job?: No Are you interested in more education?: No Please select the resources that you would like help with: None Currently or been in a relationship where the following occur: No concerns reported THRIVE Score: 0 AUDIT C Alcohol Use Questionnaire (AUDIT-C) 1. How often do you have a drink containing alcohol?: Never 3. How often do you have six or more drinks on one occasion?: Never Total Score: 0 Score Reviewed/Action Taken: Yes DAE-7 AMB Questionnaire DAE-7 Date DAE - 7 assessed: 01/19/25 Feeling nervous, anxious, or on edge: 0 = Not at all Not being able to stop or control worryin = Not at all Worrying too much about different things: 0 = Not at all Trouble relaxin = Not at all Being so restless that it is hard to sit still: 0 = Not at all Becoming easily annoyed or irritable: 0 = Not at all Feeling afraid as if something awful might happen: 0 = Not at all Total DAE-7 score (0-4 normal; 5-9 mild; 10-14 moderate; 15-21 severe): 0 Source: Developed by Cira Ramos Kurt Kroenke and colleagues, with an educational doyle from [employer]. Review of Systems Const Denies chills, Denies fatigue, Denies fever(s) and Denies headache(s) ENT Denies dysphagia, Denies dizziness, Denies otalgia, Denies headache(s), Reports neck pain (increasing on both sides of his neck), Denies odynophagia and Denies sore throat Card Denies chest pain, Denies irregular heart rhythm, Denies palpitations and Denies dyspnea Resp Denies chest congestion, Denies cough and Denies dyspnea GI Denies abdominal pain, Denies constipation, Denies dysphagia, Denies heartburn, Denies diarrhea, Denies nausea, Denies odynophagia and Denies vomiting Denies difficulty urinating, Denies dysuria, Reports nocturia, Reports urinary frequency and Denies urinary urgency Musc Denies back pain, Denies arthralgias and Reports neck pain (increasing on both sides of his neck) Skin/Breast Details: (+) recurrent open sore/rash on his upper back; (+) raised keratotic lesion on top of the forehead Neuro Denies dizziness, Denies headache(s) and Denies paresthesias Endo Denies fatigue and Denies palpitations Physical exam (Primary Care) Vital Signs: Last Vital Signs Temp 97.7 F 01/19/25 16:24 Pulse 76 01/19/25 16:24 BP 124/78 01/19/25 16:24 Pulse Ox 98 01/19/25 16:24 Oxygen Delivery Method Room Air 01/19/25 16:24 BMI result Body Mass Index 28.9 Tobacco/Smoking Status: Tobacco use Status Tobacco use date assessed 01/19/25 01/19/25 16:29 Patient Tobacco Use Status Former Tobacco user 01/19/25 16:21 e-Cigarette/Vaping Use Former Use 01/19/25 16:21 PHQ-9: PHQ-9 Score PHQ-9: Total score 0 01/19/25 17:04 Depression Screening Interpretation: Negative Thrive Assessment: Date of Thrive Assessment Date Thrive assessed 01/19/25 01/19/25 16:29 Currently or been in a relationship where the following occur: No concerns reported Const General: no acute distress and alert HENMT Ears: TM's normal bilaterally and EAC's normal Throat: Yes posterior oropharynx normal and Yes tonsils normal (no TP congestion) Neck Neck: No lymphadenopathy and Yes tender Thyroid: Thyroid normal Resp Auscultation: clear to auscultation bilaterally, no rales and no wheezes Cardio Rate: regular rate Rhythm: regular rhythm Heart sounds: no murmurs GI Palpation (GI): Soft to palpation and nontender Auscultation: normal bowel sounds General: Yes no CVA tenderness Back/Spine/Pelvis Back: no CVA tenderness Cervical Spine: cervical muscular tenderness (bilaterally) and Cervical spine tenderness (increasing) Thoracic/Lumbar Spine: lumbar spinal tenderness (chronic) Skin Other: (+) circular patch of papular rash over the left upper back at the base of the neck - there is an open wound at the center of the rash that patient claims keep recurring; (+) raised keratotic lesion on top of the forehead just under the anterior hairline Extrem General: Yes no clubbing, cyanosis or edema Results Reviewed Results Reviewed: Laboratory Tests 08/14/24 08/14/24 08:11 08:14 WBC 7.6 Hgb 17.1 Hct 47.7 Plt Count 232 Sodium 141 Potassium 4.3 Creatinine 0.92 Estimated GFR > 60 Fasting Glucose 109 H Hemoglobin A1c % 4.8 Calcium 9.6 AST 27 ALT 34 Triglycerides 88 Cholesterol 158 LDL Cholesterol, Calc 99 HDL Cholesterol 42 Prostate Specific Ag 5.92 H 25-OH Vitamin D Total 39.4 TSH 0.31 L Free T4 1.09 Ur Specific [place] 1.020 Urine Protein Negative Urine Glucose (UA) Negative Urine Blood Negative Urine Nitrite Negative Ur Leukocyte Esterase Negative Coding Level of Care Code Est Pt Level 4 (99674) Diagnoses Neck pain M54.2 Elevated PSA R97.20 Degeneration of intervertebral disc of lumbar region with discogenic back pain M51.360 Disc-related pain type: discogenic back pain only Impaired fasting blood sugar R73.01 GERD without esophagitis K21.9 Vitamin D deficiency E55.9 Allergic rhinitis, unspecified seasonality, unspecified trigger J30.9 Allergic rhinitis trigger: unspecified Allergic rhinitis seasonality: unspecified Pruritic rash L28.2 Keratotic lesion L57.0 Overweight (BMI 25.0-29.9) E66.3 Additional Codes PHQ-9 - 64435 - PHQ-9 Billing: Yes ([id number]) Assessment & Plan Assessment & Plan (1) Neck pain: Code(s): M54.2 - Cervicalgia Category: Medical Plan: Will send patient for cervical spine x-rays for further evaluation Have advised patient that insurance will generally not approve MRI as the first step in evaluation of chronic neck or low back pain irregardless of the type of insurance one has Advised that the next step will depend on how his x-rays come out, whether it is a referral to physical therapy or further evaluation with MRI Continue Ibuprofen 800 mg TID PRN for now but reminded him to make sure he takes this with food (2) Elevated PSA: Code(s): R97.20 - Elevated prostate specific antigen [PSA] Category: Medical Plan: Have advised patient that his PSA level has again increased further on his recent labs and is now at 5.92 when last checked in August 2024 Will refer him to urology for further evaluation and management (3) Lumbar degenerative disc disease: Code(s): M51.36 - Other intervertebral disc degeneration, lumbar region Category: Medical Qualifiers: Disc-related pain type: discogenic back pain only Qualified Code(s): M51.360 - Other intervertebral disc degeneration, lumbar region with discogenic back pain only Plan: Reinforced activity and weight-lifting restrictions Repeat lumbar spine x-rays done in August 2023 revealed (+) mild degenerative endplate changes at the lumbosacral junction (L5-S1) Continue Ibuprofen 800 mg TID PRN with food; he was also on Pregabalin 50 mg TID previously but he states that he stopped taking this sometime last year He was also referred back to [facility] with Dr. Garcia for pain management last year but it does not look like he ever pursued this (4) Impaired fasting blood sugar: Code(s): R73.01 - Impaired fasting glucose Category: Medical Plan: Results of his labs done back in August 2024 reviewed and discussed with patient His FBS was still slightly elevated at 109 mg/dl but his HgbA1c was normal at 4.8% Reinforced low calorie/low carb diet (5) GERD without esophagitis: Code(s): K21.9 - Gastro-esophageal reflux disease without esophagitis Category: Medical Plan: Dietary restrictions reinforced Continue Omeprazole 40 mg QD (6) Vitamin D deficiency: Code(s): E55.9 - Vitamin D deficiency, unspecified Category: Medical Plan: Continue OTC Vitamin D3 2000 units QD (7) Allergic rhinitis: Code(s): J30.9 - Allergic rhinitis, unspecified Category: Medical Qualifiers: Allergic rhinitis trigger: unspecified Allergic rhinitis seasonality: unspecified Qualified Code(s): J30.9 - Allergic rhinitis, unspecified Plan: Continue OTC Loratadine 10 mg QD PRN (8) Pruritic rash: Code(s): L28.2 - Other prurigo Category: Medical Plan: Patient feels that this lesion on his upper back did clear up temporarily with the Clobetasol cream that we last prescribed for him and would like to get this refilled for now - Rx refilled States that he was seen previously by Dr. Chambers but had some payment/billing issues and he was advised that he cannot be seen any longer unless his bill is settled He is requesting for a referral to another director independent for this issue - will try referring him to [facility] for further evaluation and management (9) Keratotic lesion: Code(s): L57.0 - Actinic keratosis Category: Medical Plan: Will also refer him to [facility] for further evaluation of this lesion - is likely a seborrheic or actinic keratosis (10) Overweight (BMI 25.0-29.9): Code(s): E66.3 - Overweight Category: Medical Plan: Reinforced diet/exercise as tolerated/lose weight Plan To return in 6 months for his next annual physical examination Orders: Orders Hemoglobin A1c 6 Months R73.01 - Impaired fasting glucose, Z00.00 - Encounter for general adult medical examination without abnormal findings TSH reflex Free T4 6 Months E78.00 - Pure hypercholesterolemia, unspecified, Z00.00 - Encounter for general adult medical examination without abnormal findings UA CC w/rflx Micro + Cult 6 Months R30.0 - Dysuria, Z00.00 - Encounter for general adult medical examination without abnormal findings XR cervical spine 3V 01/19/25 M54.2 - Cervicalgia Complete Blood Count Auto Diff 6 Months D64.9 - Anemia, unspecified, Z00.00 - Encounter for general adult medical examination without abnormal findings Comprehensive [place]. Panel Fast 6 Months E78.00 - Pure hypercholesterolemia, unspecified, Z00.00 - Encounter for general adult medical examination without abnormal findings Lipid Panel 6 Months E78.00 - Pure hypercholesterolemia, unspecified, Z00.00 - Encounter for general adult medical examination without abnormal findings Vitamin D 25-OH Total 6 Months E55.9 - Vitamin D deficiency, unspecified, Z00.00 - Encounter for general adult medical examination without abnormal findings Prostate Specific Antigen 6 Months R97.20 - Elevated prostate specific antigen [PSA], Z00.00 - Encounter for general adult medical examination without abnormal findings Referrals Dermatology Referral L28.2 - Other prurigo, L57.0 - Actinic keratosis, L81.9 - Disorder of pigmentation, unspecified Urology Referral R97.20 - Elevated prostate specific antigen [PSA] Medications: Refilled omeprazole 40 mg PO DAILY 90 days 90 caps 1RF clobetasol 0.05% 1 appl topical BID 2 weeks 45 grams 0RF
[2025-01-19 16:24] VITALS: BP 124/78; PULSE 76; TEMP 36.5; O2SAT 98; BMI 28.9
== END 2025-01-19 17:06 | disposition home or self-care (01) ==
LOC: HO.HMCH 16:17
PROVIDERS: PCP Internal Medicine; Visit Provider Internal Medicine
DX: M54.2 Cervicalgia (principal); R97.20 Elevated prostate specific antigen [PSA]; M51.360 Other intervertebral disc degeneration, lumbar region with discogenic back pain only; R73.01 Impaired fasting glucose; K21.9 Gastro-esophageal reflux disease without esophagitis; E55.9 Vitamin D deficiency, unspecified; J30.9 Allergic rhinitis, unspecified; L28.2 Other prurigo; L57.0 Actinic keratosis; E66.3 Overweight

== ENCOUNTER → 2025-01-19 16:17 | Outpatient (BNVA) | payer OTHER, SELFPAY | PROVIDERS: PCP Internal Medicine; Visit Provider Internal Medicine | DX: M54.2 Cervicalgia (principal); R97.20 Elevated prostate specific antigen [PSA]; M51.360 Other intervertebral disc degeneration, lumbar region with discogenic back pain only; R73.01 Impaired fasting glucose; K21.9 Gastro-esophageal reflux disease without esophagitis; E55.9 Vitamin D deficiency, unspecified; J30.9 Allergic rhinitis, unspecified; L28.2 Other prurigo; L57.0 Actinic keratosis; E66.3 Overweight; Z68.28 Body mass index [BMI] 28.0-28.9, adult; Z79.899 Other long term (current) drug therapy | CPT/HCPCS: 96127 ==